=== PATIENT | male | born 1965 | race African-American/Black ===

== ENCOUNTER → 2017-01-30 | Outpatient (CLI) | payer BC | LOC: OD 09:39 | PROVIDERS: ATTEND Physician Assistant | DX: M25.532 Pain in left wrist (principal); M54.2 Cervicalgia; M50.322 Other cervical disc degeneration at C5-C6 level | CPT/HCPCS: 72050 ==

== ENCOUNTER → 2017-08-21 | Outpatient (CLI) | payer BC ==
--- NOTE | 2017-08-21 13:42 | RADIOLOGY REPORT (SQ) ---
EXAM DESCRIPTION: KNEE LEFT 4 VIEWS; KNEE RIGHT 4 VIEWS COMPLETED DATE/TIME: 08/21/2017 1:31 pm REASON FOR STUDY: LOW BACK PAIN, PAIN IN RT KNEE/LT KNEE COMPARISON: None. NUMBER OF VIEWS: Four views right knee. Four views left knee. LIMITATIONS: None. FINDINGS: Right knee: Normal bone density. Mild irregular calcification along the proximal aspect medial distal femur. Potentially related to previous medial collateral ligament injury. Joint space s are maintained. No acute fracture or bone lesion or effusion. Left knee: Normal bone density. No bone, joint or soft tissue abnormality detected. OTHER: No other significant finding. IMPRESSION: 1. Probable old right MCL injury. 2. Otherwise unremarkable bilateral knee radiographs . TECHNICAL DOCUMENTATION: JOB ID: [id number]
--- NOTE | 2017-08-21 13:44 | RADIOLOGY REPORT (SQ) ---
EXAM DESCRIPTION: LUMBAR SPINE COMPLETE COMPLETED DATE/TIME: 08/21/2017 1:31 pm REASON FOR STUDY: LOW BACK PAIN, PAIN IN RT KNEE/LT KNEE M25.561 PAIN IN RIGHT KNEE M25.562 PAIN I N LEFT KNEE M54.5 LOW BACK PAIN COMPARISON: None. NUMBER OF VIEWS: Five views including obliques. TECHNIQUE: AP, lateral, oblique, and sacral radiographic images acquired of the lumbar spine. LIMITATIONS: None. FINDINGS: MINERALIZATION: Normal. SEGMENTATION: Normal. No transitional anatomy. ALIGNMENT: Normal. VERTEBRAE: Maintained height. No fracture or worrisome bone lesion. DISCS: Mild decreased disc height with osteophytes at L5-S1. Minimal osteophytes at L3-4. Other dis cs look maintained. POSTERIOR ELEMENTS: Pedicles and facets are intact. No pars defect or posterior arch defects. HARDWARE: None in the spine. PARASPINAL SOFT TISSUES: Normal. PELVIS: Intact as visualized. No fractures or worrisome bone lesions. SI joints intact. OTHER: No other significant finding. IMPRESSION: Mild lower lumbar spondylosis. No malalignment, fracture or bone lesion. TECHNICAL DOCUMENTATION: JOB ID: [id number] [employer]- All Rights Reserved
== END ==
LOC: OD 13:07
PROVIDERS: ATTEND Physician Assistant
DX: M25.561 Pain in right knee (principal); M25.562 Pain in left knee; M54.5 Low back pain
CPT/HCPCS: 72110

== ENCOUNTER → 2019-12-10 | Outpatient (CLI) | payer BC ==
--- NOTE | 2019-12-10 12:07 | RADIOLOGY REPORT (SQ) ---
EXAM DESCRIPTION: LUMBAR SPINE COMPLETE COMPLETED DATE/TIME: 12/10/2019 8:35 am REASON FOR STUDY: LBP M54.5 LOW BACK PAIN COMPARISON: Lumbar spine films 08/21/2017 CT abdomen pelvis 11/08/2008 NUMBER OF VIEWS: Five views including obliques. TECHNIQUE: AP, lateral, oblique, and sacral radiographic images acquired of the lumbar spine. LIMITATIONS: None. FINDINGS: MINERALIZATION: Normal. SEGMENTATION: Normal. No transitional anatomy. ALIGNMENT: Normal. VERTEBRAE: Maintained height. No fracture or worrisome bone lesion. DISCS: Disc space loss of height at L5-S1 with bony spurring POSTERIOR ELEMENTS: No spondylolysis. There is incidental finding of unfused spinous processes/spina bifida occulta at T12, L1, and L2 of doubtful clinical significance. HARDWARE: None in the spine. PARASPINAL SOFT TISSUES: Normal. PELVIS: SI joints are intact OTHER: No other significant finding. IMPRESSION: Degenerative disc space loss of height with bony spurring at L5-S1 TECHNICAL DOCUMENTATION: JOB ID: [id number] [employer]- All Rights Reserved Reading location - IP/workstation name: [email or web address]
== END ==
LOC: OD 08:23
PROVIDERS: ATTEND Family Medicine
DX: M54.5 Low back pain (principal)
CPT/HCPCS: 72110